=== PATIENT | female | born 1980 | race Two or more races ===

== ENCOUNTER 2020-08-18 12:00 | Inpatient (IN) | payer BC ==
[~2020-08-18] VITALS: Ht 154.9 cm; Wt 113.0 kg
[2020-10-02] MEDS ORDERED: CALC-534 PO (12:08)
[2020-10-02] MEDS ORDERED: LEVO100T5 PO (12:08)
[2020-10-02] MEDS ORDERED: FERR324T5 PO (12:08)
[2020-10-02] MEDS ORDERED: BUPR150T22 PO (12:08)
[2020-10-02] MEDS ORDERED: METF500T17 PO (12:08)
[2020-10-06 08:54] LABS: HCG UR SG 1.021 (1.003-1.030)
[2020-10-06] MEDS ORDERED: FENTANYL PF 250 MCG/5ML ONE ×2 (08:57→11:52)
[2020-10-06] MEDS ORDERED: MIDAZOLAM 1 MG/ML, 2ML ONE (08:57)
[2020-10-06] MEDS ORDERED: LACTATED RINGERS 1,000 ML IV SCH (09:00)
[2020-10-06] MEDS ORDERED: ACETAMINOPHEN 325 MG TABLET PO PRN (09:00)
[2020-10-06] MEDS ORDERED: hydrALAzine 20 MG/ML, 1ML IV PRN (09:00)
[2020-10-06] MEDS ORDERED: EPHEDRINE 50 MG/ML, 1ML IVPush PRN (09:00)
[2020-10-06] MEDS ORDERED: LABETALOL 5MG/ML, 20ML IV PRN (09:00)
[2020-10-06] MEDS ORDERED: FENTANYL PF 100 MCG/2ML IV PRN (09:00)
[2020-10-06] MEDS ORDERED: ONDANSETRON 2MG/ML, 2ML IVPush PRN (09:00)
[2020-10-06] MEDS ORDERED: OXYcodone 5 MG/5 ML ORAL.SOL UDC PO PRN (09:00)
[2020-10-06] MEDS ORDERED: MEPERIDINE/PF 25MG/0.5ML IVPush PRN (09:00)
[2020-10-06] MEDS ORDERED: CHLORHEXIDINE 15 ML UDC PO ONE (09:00)
[2020-10-06] MEDS ORDERED: PROMETHAZINE 25 MG/ML, 1ML IVPush PRN (09:00)
[2020-10-06] MEDS ORDERED: PROPOFOL 10 MG/ML, 20ML ONE (10:25)
[2020-10-06] MEDS ORDERED: ONDANSETRON 2MG/ML, 2ML ONE (10:25)
[2020-10-06] MEDS ORDERED: ROCURONIUM 10 MG/ML,10ML ONE (10:25)
[2020-10-06] MEDS ORDERED: SUCCINYLCHOLINE 20 MG/ML, 10ML ONE (10:25)
[2020-10-06] MEDS ORDERED: DEXAMETHASONE 4 MG/ML, 1ML ONE (10:25)
[2020-10-06] MEDS ORDERED: KETOROLAC 30 MG/1 ML ONE (10:25)
[2020-10-06] MEDS ORDERED: GLYCOPYRROLATE 0.2MG/1ML, 5ML ONE (10:25)
[2020-10-06] MEDS ORDERED: NEOSTIGMINE 1 MG/ML, 10ML ONE (10:25)
[2020-10-06] MEDS ORDERED: METOCLOPRAMIDE 5 MG/ML, 2ML ONE (10:25)
[2020-10-06] MEDS ORDERED: CEFAZOLIN 1,000 MG ONE (10:25)
[2020-10-06] MEDS ORDERED: HYDROmorphone 2 MG/ML, 1ML ONE (12:37)
[2020-10-06] MEDS: HYDROmorphone 1 MG/ML, 1ML INJ IVPush PRN ×2 (12:41→13:00)
[2020-10-06] MEDS ORDERED: ACETAMINOPHEN 650 MG/20.3 ML UDC ONE (13:03)
[2020-10-06] MEDS ORDERED: OXYcodone 5 MG/5 ML ORAL.SOL UDC ONE (13:04)
[2020-10-06] MEDS ORDERED: ONDANSETRON 2MG/ML, 2ML IV PRN (14:30)
[2020-10-06] MEDS: KETOROLAC 30 MG/1 ML IV PRN ×2 (15:14→23:14)
[2020-10-06] MEDS: OXYcodone/APAP 5/325MG TABLET PO PRN ×2 (16:54→21:36)
[2020-10-06] MEDS: D5%-LACTATED RINGERS 1,000 ML IV SCH ×2 (17:06→22:30)
[2020-10-06 19:47] VITALS: BP 137/87
[2020-10-06] MEDS ORDERED: morphine SULFATE 10 MG/ML, 1ML IVPush PRN (20:00)
[2020-10-06] MEDS: DOCUSATE 100 MG CAPSULE PO SCH (20:12)
[2020-10-06] MEDS: SODIUM CHLORIDE FLUSH 10ML SYR IVF SCH (20:12)
[2020-10-06] MEDS ORDERED: ZOLPIDEM 5MG TABLET PO PRN (21:00)
[2020-10-07 00:03] VITALS: BP 128/79
[2020-10-07] MEDS: OXYcodone/APAP 5/325MG TABLET PO PRN ×6 (01:58→23:48)
[2020-10-07 04:36] VITALS: BP 107/73
[2020-10-07] MEDS: KETOROLAC 30 MG/1 ML IV PRN ×2 (05:31→11:48)
[2020-10-07] MEDS: D5%-LACTATED RINGERS 1,000 ML IV SCH ×3 (06:30→21:30)
[2020-10-07 06:35] VITALS: BP 112/67
[2020-10-07] MEDS: SODIUM CHLORIDE FLUSH 10ML SYR IVF SCH ×2 (07:29→21:29)
[2020-10-07] MEDS: DOCUSATE 100 MG CAPSULE PO SCH ×2 (07:29→21:28)
[2020-10-07] MEDS ORDERED: CYCLOBENZAPRINE 10 MG TABLET ONE (11:50)
[2020-10-07] MEDS: CYCLOBENZAPRINE 10 MG TABLET PO PRN ×2 (11:52→21:28)
[2020-10-07 14:28] VITALS: BP 125/67
[2020-10-07 19:21] VITALS: BP 122/81
[2020-10-07] MEDS: IBUPROFEN 800 MG TABLET PO PRN (21:28)
[2020-10-08 01:10] VITALS: BP 111/70
[2020-10-08] MEDS: OXYcodone/APAP 5/325MG TABLET PO PRN ×3 (04:03→14:30)
[2020-10-08] MEDS: CYCLOBENZAPRINE 10 MG TABLET PO PRN (04:05)
[2020-10-08] MEDS: D5%-LACTATED RINGERS 1,000 ML IV SCH ×2 (05:31→14:30)
[2020-10-08 07:43] VITALS: BP 111/56
[2020-10-08] MEDS: DOCUSATE 100 MG CAPSULE PO SCH (09:32)
[2020-10-08] MEDS: SODIUM CHLORIDE FLUSH 10ML SYR IVF SCH (09:33)
[2020-10-08] MEDS ORDERED: LEVOTHYROXINE 100 MCG TABLET PO SCH (11:00)
[2020-10-08] MEDS ORDERED: metFORMIN 500 MG TABLET PO SCH (11:00)
[2020-10-08] MEDS: IBUPROFEN 800 MG TABLET PO PRN (11:59)
[2020-10-08 12:43] VITALS: BP 117/58
[2020-10-08] MEDS ORDERED: IBUP-1223 PO (12:59)
[2020-10-08] MEDS ORDERED: DOCU-131 PO (12:59)
[2020-10-08] MEDS ORDERED: OXYC1TAB14 PO (12:59)
[2020-10-08] MEDS ORDERED: CYCL10TA2 PO (12:59)
[2020-10-08] MEDS ORDERED: BUPROPION 75 MG TABLET PO SCH (14:00)
[2020-10-08 14:24] VITALS: BP 102/68
[2020-10-09] MEDS ORDERED: BUPROPION 75 MG TABLET PO SCH (09:00)
== END 2020-10-08 15:10 | disposition home or self-care (01) | DRG 743 ==
LOC: ORIP 10-06 08:01 → 4NE 10-06 14:06 → DCLOUNGE 10-08 14:55
PROVIDERS: ADMIT Obstetrics & Gynecology; ATTEND Obstetrics & Gynecology
PROC: 0UB70ZZ Excision of Bilateral Fallopian Tubes, Open Approach (ICD-10-PCS; 2020-10-06)
PROC: 0DNW0ZZ Release Peritoneum, Open Approach (ICD-10-PCS; 2020-10-06)
PROC: 0TNB0ZZ Release Bladder, Open Approach (ICD-10-PCS; 2020-10-06)
PROC: 0UT90ZZ Resection of Uterus, Open Approach (ICD-10-PCS; principal; 2020-10-06 10:00)
DX: N94.6 Dysmenorrhea, unspecified (principal); N93.9 Abnormal uterine and vaginal bleeding, unspecified; N73.6 Female pelvic peritoneal adhesions (postinfective); N85.2 Hypertrophy of uterus; M62.838 Other muscle spasm; Z98.891 History of uterine scar from previous surgery
CPT/HCPCS: 81025; 82962; 88307; G0378; J0690; J1100; J1170; J1885; J2250; J2405; J2704; J2710; J3010; J0330; J2270; J2765; J7120; J7121

== ENCOUNTER → 2020-10-02 | Outpatient (CLI) | payer BC ==
[~2020-10-02] MED LIST: BUPR150T22 PO; CALC-534 PO; FERR324T5 PO; LEVO100T5 PO; METF500T17 PO
[2020-10-02 12:28] LABS: BASOPHILS % (AUTO) 1 % (0-1); EOSINOPHILS % (AUTO) 4 % (1-7); LYMPHOCYTES % (AUTO) 33 % (22-44); MEAN CORPUSCULAR HEMOGLOBIN 27.4 pg (27.0-34.8); MEAN CORPUSCULAR HGB CONC 32.4 g/dL (32.4-35.8); MEAN PLATELET VOLUME 8.7 fL (7.4-10.4); MONOCYTES % (AUTO) 6 % (2-9); NEUTROPHILS % (AUTO) 57 % (42-75); PLATELET COUNT 200 x10^3/uL (130-400); RED BLOOD COUNT 4.47 x10^6/uL (3.82-5.3); RED CELL DISTRIBUTION WIDTH 14.2 % (9.6-15.2)
[2020-10-02 12:35] LABS: MD NO
[2020-10-02 12:40] LABS: ALBUMIN 3.6 g/dL (3.4-5.0); ANION GAP 4 mmol/L (5-15); CALCIUM 8.5 mg/dL (8.5-10.1); CHLORIDE 106 mmol/L (98-107)
[2020-10-02 12:43] LABS: ALANINE AMINOTRANSFERASE 56 U/L (12-78); ALKALINE PHOSPHATASE 64 U/L (45-117); BILIRUBIN,TOTAL 0.3 mg/dL (0.2-1.0); TOTAL PROTEIN 7.4 g/dL (6.4-8.2)
== END | disposition home or self-care (01) ==
LOC: STAR 11:15
PROVIDERS: ATTEND Obstetrics & Gynecology
DX: Z01.818 Encounter for other preprocedural examination (principal); N93.9 Abnormal uterine and vaginal bleeding, unspecified; Z20.822 Contact with and (suspected) exposure to COVID-19
CPT/HCPCS: 36415; 80053; 85025; 93005; U0003